=== PATIENT | female | born 1995 | race Caucasian/White ===

== ENCOUNTER 2020-06-29 13:21 | Emergency (ER) | payer OTHER ==
[2020-06-29 13:39] VITALS: BP 129/77; PULSE 72; TEMP 97; BMI 26.7
--- NOTE | 2020-06-29 13:57 | PDOC ---
History of Present Illness - General Chief Complaint: Eye Problem Stated Complaint: SAMIR GRIFFITHS Time Seen by Provider: 06/29/20 13:43 History Source: Patient Exam Limitations: Clinical Condition - History of Present Illness Initial Comments: 06/29/20 13:59 Patient with no significant past medical history present with complaint of nasal congestion, sneezing and bilateral eye itching and redness with starting the right eye and move the left eye which has improved with Visine [id number] eyedrops. Patient came to ED for evaluation as she needs a work note to return to work. Denies blurry vision, change in vision, contact lens use, shortness of breath, fever, chills, headache or dizziness. Denies any other symptoms Is this a multiple visit Asthma Patient?: No Timing/Duration: other (3 days) Past History - Medical History Allergies/Adverse Reactions: Allergies Allergy/AdvReac Type Severity Reaction Status Date / Time No Known Allergies Allergy Verified 06/29/20 13:39 Home Medications: Ambulatory Orders Benzonatate [Tessalon Pearls -] 100 mg PO Q8H PRN #21 capsule 12/28/19 Ipratropium [place] [Atrovent Hfa] 2 puff IH Q6H PRN #1 hfa.[id number].[id number] 12/28/19 Montelukast Na [Singulair -] 10 mg PO DAILY #7 tablet 06/29/20 COPD: No - Reproductive History Is Patient Now?: No - Immunization History Immunization Up to Date: No - Psycho-Social/Smoking History Smoking History: Never smoked Have you smoked in the past 12 months: No Review of Systems - Review of Systems Able to Perform ROS?: Yes Is the patient limited [place]ian proficient: No Constitutional: No: Chills, Fever, Malaise HEENTM: Yes: Symptoms Reported, See HPI, Tearing. No: Eye Pain, Blurred Vision, Recent change in vision, Double Vision, Cataracts, Ear Pain, Ocular Prothesis, Ear Discharge, Nose Pain, Nose Congestion, Tinnitus, Nose Bleeding, Hearing Loss, Throat Pain, Throat Swelling, Mouth Pain, Dental Problems, Difficulty Swallowing, Mouth Swelling, Other Respiratory: No: Symptoms reported, See HPI, Cough, Orthopnea, Shortness of Breath, SOB with Exertion, SOB at Rest, Stridor, Wheezing, Productive cough, Hemoptysis, Other Cardiac (ROS): No: Symptoms Reported, See HPI, Chest Pain, Edema, Irregular Heart Rate, Lightheadedness, Palpitations, Syncope, Chest Tightness, Other ABD/GI: No: Symptoms Reported, Nausea, Vomiting Musculoskeletal: No: Symptoms Reported Integumentary: No: Symptoms Reported, Bruising, Erythema, Rash All Other Systems: Reviewed and Negative *Physical Exam - Vital Signs Last Vital Signs Temp Pulse Resp BP Pulse Ox 97 F L 72 18 129/77 100 06/29/20 13:37 06/29/20 13:37 06/29/20 13:37 06/29/20 13:37 06/29/20 13:37 - Physical Exam 06/29/20 14:04 GENERAL: Well developed, well nourished. Awake and alert. No acute distress. HEENT: Normocephalic, atraumatic. PERRLA, EOMI. No conjunctival pallor. Sclera are non-icteric. Moist mucous membranes. Oropharynx is clear. NECK: Supple. Full ROM. CARDIOVASCULAR: Regular rate and rhythm. No murmurs, rubs, or gallops. PULMONARY: No evidence of respiratory distress. Lungs clear to auscultation bilaterally. No wheezing, rales or rhonchi. ABDOMINAL: Soft. Non-tender. Non-distended. No rebound or guarding. No organomegaly. Normoactive bowel sounds. MUSCULOSKELETAL Normal range of motion at all joints. SKIN: Warm and dry. Normal capillary refill. No erythema or swelling to bilateral eyelids or face NEUROLOGICAL: Alert, awake, appropriate. Gait is normal without ataxia. PSYCHIATRIC: Cooperative. Good eye contact. Appropriate mood General Appearance: Yes: Nourished, Appropriately Dressed. No: Apparent Distress Medical Decision Making - Medical Decision Making 06/29/20 14:03 Patient with no significant past medical history present with complaint of nasal congestion, sneezing and bilateral eye itching and redness with starting the right eye and move the left eye which has improved with Visine [id number] eyedrops. Patient came to ED for evaluation as she needs a work note to return to work. Denies blurry vision, change in vision, contact lens use, shortness of breath, fever, chills, headache or dizziness. Denies any other symptoms Clinical exam unremarkable with bilateral conjunctiva with no conjunctival erythema. No eyelid swelling or erythema. Pupil equal reflective to light bilateral. Normal cardio and lung exam. Patient in no acute distress. Patient symptoms likely allergic rhinitis with allergic conjunctivitis. Patient stable for discharge on antihistamine Singulair daily with advised to continue home Visine [id number] eyedrops with ophthalmology follow-up as needed Discharge - Discharge Information Problems reviewed: Yes Clinical Impression/Diagnosis: Allergic rhinitis Qualifiers: Allergic rhinitis trigger: unspecified Allergic rhinitis seasonality: seasonal Qualified Code(s): J30.2 - Other seasonal allergic rhinitis Allergic conjunctivitis and rhinitis Qualifiers: Laterality: bilateral Qualified Code(s): H10.13 - Acute atopic conjunctivitis, bilateral Condition: Stable Disposition: HOME - Admission No - Additional Discharge Information Prescriptions: Montelukast Na [Singulair -] 10 mg PO DAILY #7 tablet - Follow up/Referral Referrals: Angie Paniagua MD [Primary Care Provider] - Jasen Grant MD [Staff Physician] - - Patient Discharge Instructions Patient Printed Discharge Instructions: DI for Conjunctivitis Additional Instructions: Your symptoms likely caused by allergies. Take prescribed antihistamine as prescribed and continue using home eyedrops as needed. Follow-up referred ophthalmology if symptoms persist - Post Discharge Activity Work/Back to School Note: Back to Work
== END 2020-06-29 13:58 | disposition home or self-care (01) ==
LOC: JERFT 13:21
DX: J30.2 Other seasonal allergic rhinitis (principal); H10.13 Acute atopic conjunctivitis, bilateral
CPT/HCPCS: 99283-25

== ENCOUNTER 2021-01-17 14:38 | Emergency (ER) | payer OTHER ==
[2021-01-17 15:00] VITALS: BP 119/63; PULSE 83; TEMP 98.4; BMI 26.7
[2021-01-17] MEDS ORDERED: KETOROLAC TROMETHAMINE 60 MG/2 ML VIAL IM ONE (15:32)
[2021-01-17] MEDS ORDERED: KETOROLAC TROMETHAMINE 60 MG/2 ML VIAL ONE (15:46)
== END 2021-01-17 15:58 ==
LOC: JER 14:38
PROC: 3E0233Z Introduction of Anti-inflammatory into Muscle, Percutaneous Approach (ICD-10-PCS; principal; 2021-01-17)
DX: M54.5 Low back pain (principal)
CPT/HCPCS: 99284-25

== ENCOUNTER 2022-01-29 11:28 | Emergency (ER) | payer OTHER ==
[2022-01-29 11:45] VITALS: BP 111/71; PULSE 77; TEMP 98.2; BMI 27.4
[2022-01-29] MEDS ORDERED: IBUPROFEN 600 MG TABLET (FP) PO ONE ×2 (12:28→12:37)
== END 2022-01-29 13:45 | disposition home or self-care (01) ==
LOC: JER 11:28
DX: U07.1 COVID-19 (principal)
CPT/HCPCS: 0241U-QW; 99283-25

== ENCOUNTER 2022-09-29 13:53 | Emergency (ER) | payer OTHER ==
[2022-09-29 14:12] VITALS: RESP 18; BMI 27.4
[2022-09-29] MEDS ORDERED: IBUPROFEN 600 MG TABLET (FP) PO ONE ×2 (15:16→16:55)
[2022-09-29] MEDS ORDERED: ACETAMINOPHEN 500 MG TABLET (FP) PO ONE (15:16)
[2022-09-29] MEDS ORDERED: ONDANSETRON 4 MG/2 ML VIAL IVPUSH ONE (15:51)
[2022-09-29] MEDS ORDERED: SODIUM CHLORIDE 0.9% 500 ML INFUS.BAG IV ONE (15:51)
[2022-09-29] MEDS ORDERED: ONDANSETRON 4 MG/2 ML VIAL ONE (16:55)
[2022-09-29] MEDS ORDERED: ACETAMINOPHEN 1000 MG/100 ML BAG IVPB ONE (17:12)
[2022-09-29] MEDS ORDERED: ACETAMINOPHEN INJECTION 100 ML IVPB ONE (17:23)
[2022-09-29 17:58] LABS: URINE APPEARANCE CLOUDY; URINE BILIRUBIN NEGATIVE (NEGATIVE); URINE COLOR YELLOW; URINE GLUCOSE (UA) NEGATIVE (NEGATIVE); URINE KETONE NEGATIVE (NEGATIVE); URINE LEUK ESTERASE NEGATIVE (NEGATIVE); URINE NITRITE NEGATIVE (NEGATIVE); URINE PROTEIN NEGATIVE (NEGATIVE); URINE UROBILINOGEN 0.2 mg/dL (0.2-1.0)
[2022-09-29 18:11] LABS: BASO % 0.3 % (0-2.0); EOS % 0.8 % (0-4.5); HEMATOCRIT 38.1 % (32.4-45.2); HEMOGLOBIN 12.5 GM/dL (10.7-15.3); LYMPH % 33.7 % (8-40); MCH 29.2 pg (25.7-33.7); MCHC 32.8 g/dl (32.0-36.0); MONO % 5.2 % (3.8-10.2); PLATELET COUNT 277 10^3/uL (134-434); RBC 4.28 M/mm3 (3.60-5.2); RDW 14.1 % (11.6-15.6); WHITE BLOOD COUNT 8.5 K/mm3 (4.0-10.0)
[2022-09-29 18:14] LABS: CALCIUM 9.1 mg/dL (8.5-10.1)
[2022-09-29 18:15] LABS: ALBUMIN 3.7 g/dl (3.4-5.0)
[2022-09-29 18:18] LABS: CREATININE 0.6 mg/dL (0.55-1.3)
[2022-09-29 18:19] LABS: BILIRUBIN,TOTAL 0.4 mg/dL (0.2-1); TOT PROT 7.9 g/dl (6.4-8.2)
[2022-09-29 18:23] VITALS: BP 106/65; PULSE 67; TEMP 98.3
== END 2022-09-29 18:40 | disposition home or self-care (01) ==
LOC: JER 13:53
PROC: 3E033GC Introduction of Other Therapeutic Substance into Peripheral Vein, Percutaneous Approach (ICD-10-PCS; principal; 2022-09-29)
DX: G93.39 Other post infection and related fatigue syndromes (principal)
CPT/HCPCS: 0241U-QW; 36415; 80053; 81003; 83690; 84703; 85025; 87086; 99284-25

== ENCOUNTER 2024-06-22 20:03 | Emergency (ER) | payer OTHER ==
[2024-06-22 20:11] VITALS: BP 125/82; PULSE 67; RESP 18; TEMP 98.4; BMI 26.6
[2024-06-22] MEDS ORDERED: ALBUTEROL SO4 2.5/IPRATROPIUM 0.5 INH SOL 3 ML VIAL.NEB. NEB ONE (21:32)
[2024-06-22] MEDS: ALBUTEROL SO4 2.5/IPRATROPIUM 0.5 INH SOL 3 ML VIAL.NEB. NEB SCH (21:39)
[2024-06-22] MEDS ORDERED: predniSONE 20 MG TABLET (UD) ONE (22:39)
[2024-06-22] MEDS: predniSONE 20 MG TABLET (UD) PO ONE (22:42)
== END 2024-06-22 23:16 | disposition home or self-care (01) ==
LOC: JERFT 20:03
DX: R05.3 Chronic cough (principal); R09.82 Postnasal drip; R06.2 Wheezing; Z20.822 Contact with and (suspected) exposure to COVID-19
CPT/HCPCS: 0241U-QW; 71046-TC-FY; 99284-25